=== PATIENT | male | born 1995 | race Caucasian/White ===

== ENCOUNTER 2018-05-15 16:40 | Emergency (ER) | payer OTHER ==
[~2018-05-15] VITALS: Ht 180.3 cm; Wt 90.7 kg
[~2018-05-15 16:40] MED LIST: ACHD5005 PO; CLIN-62 PO; CYCL10TA9 PO; IBP800T PO; MULT-974 PO; SULF-222 PO
[2018-05-15] MEDS ORDERED: TETANUS,DIPTH,PERTUSS P/F (BOOSTRIX) 0.5 ML VIAL IM ONE (16:45)
--- OUTSIDE RECORDS SUMMARY | 2018-05-15 16:45 | XMS REPORT ---
Author Author DOMINIQUE HUSSEIN Organization [facility] Address [address] [place] [address] Care Team Providers Care Coil Maker Name Role Phone DOMINIQUE HUSSEIN Unavailable PROBLEMS Unknown Problems ALLERGIES No Known Allergies ENCOUNTERS Encounter Location Date Diagnosis [facility] [address] [address] Feb, Mouth pain K13.79 [facility] [address] [address] 11 Jul, 2017 Acute seasonal allergic rhinitis, unspecified trigger J30.2 [facility] [id number] [address] Jan, Screen for STD (sexually transmitted disease) Z11.3 and Dysuria R30.0 [facility] [address] [address] Sep, Encounter for immunization Z23 IMMUNIZATIONS No Known Immunizations SOCIAL HISTORY Never Assessed REASON FOR VISIT sinus problems started this weekend now has cough JStrasserRN PLAN OF CARE Activity Details Follow Up prn Reason: VITAL SIGNS Height 70 in 2017-07-25 Weight 198.4 lbs 2017-07-25 Temperature 98.4 degrees Fahrenheit 2017-07-25 Heart Rate 76 bpm 2017-07-25 Respiratory Rate 20 2017-07-25 BMI 28.46 kg/m2 2017-07-25 Blood pressure systolic 120 mmHg 2017-07-25 Blood pressure diastolic 74 mmHg 2017-07-25 MEDICATIONS Medication Instructions Dosage Frequency Start Date End Date Duration Status DayQuil Multi-Symptom 30-325-10 MG/15ML Active NyQuil 60-7.5-30-1000 MG/30ML Active Flonase 50 MCG/ACT Nasally Once a day 1 spray in each nostril 24h Jul, 30 day(s) Active RESULTS No Results PROCEDURES No Known procedures INSTRUCTIONS MEDICATIONS ADMINISTERED No Known Medications
--- NOTE | 2018-05-15 16:47 | ED Upper Extremity ---
General Stated Complaint: L HAND INDEX FINGER LAC Source: patient Exam Limitations: no limitations History of Present Illness Date Seen by Provider: May 15, 2018 Time Seen by Provider: 16:45 Initial Comments to ER per private vehicle with a laceration to the tip of the left pointer finger with an X-Acto knife just prior to arrival. Tetanus is not up-to-date. Onset: just prior to arrival Severity: mild Pain/Injury Location: left 2nd finger Allergies and Home Medications Allergies Coded Allergies: Cefaclor (Verified Allergy, 06/30/13) Home Medications Cyclobenzaprine Hcl 10 Mg Tablet, 1 EACH PO Q8HR PRN PRN for SPASMS Prescribed by: KATE LABOY on 10/31/132139 Hydrocodone Bit/Acetaminophen 1 Each Tablet, 1 EACH PO Q4H PRN for PAIN Prescribed by: KATE LABOY on 10/31/132139 Multivitamin 1 Each Tablet, 2 TAB PO DAILY, (Reported) Patient Home Medication List Home Medication List Reviewed: Yes Constitutional: see HPI EENTM: see HPI Respiratory: no symptoms reported Cardiovascular: no symptoms reported Genitourinary: no symptoms reported Musculoskeletal: no symptoms reported Skin: see HPI Psychiatric/Neurological: No Symptoms Reported Past Tynratb-Dmjxqu-Ixqrca Hx Patient Social History Recent Foreign Travel: No Contact w/Someone Who Travel: No Immunizations Up To Date Tetanus Booster (TDap): Less than 5yrs Family Medical History No Pertinent Family Hx Physical Exam Vital Signs Capillary Refill : General Appearance: WD/WN, no apparent distress HEENT: PERRL/EOMI, normal ENT inspection Neck: non-tender, full range of motion Respiratory: no respiratory distress, no accessory muscle use Shoulder: normal inspection, non-tender Elbow/Forearm: normal inspection, non-tender, Left Wrist: Yes normal inspection, Yes non-tender Hand: Left, laceration (there is a skin avulsion to the very tip of the left pointer finger .. There is active bleeding. There is no exposed bone or nail injury.) Neurologic/Psychiatric: alert, normal mood/affect, oriented x 3 Skin: normal color, warm/dry Progress/Results/Core Measures Results/Orders My Orders Orders - AAMIR CHICAS APRN Dipht,Pertuss(Acell),Tet Adult (Boostrix (05/15/18 16:45) Departure Impression Primary Impression: Skin avulsion Disposition: 01 HOME, SELF-CARE Condition: Stable Departure-Patient Inst. Decision time for Depature: 16:46 Referrals: NO,LOCAL PHYSICIAN (PCP/Family) Primary Care Physician Patient Instructions: SKIN AVULSION Add. Discharge Instructions: 1. Allow the glue to follow off on its own in 3-5 days. Return to ER for any concerns. AAMIR CHICAS APRN May 15, 2018 16:47
[2018-05-15 17:00] VITALS: BP 139/86
== END 2018-05-15 17:10 | disposition home or self-care (01) ==
LOC: EDUNIT# 16:40 → ER 16:41
DX: S61.211A Laceration without foreign body of left index finger without damage to nail, initial encounter (principal); Z23 Encounter for immunization; Z88.1 Allergy status to other antibiotic agents; W26.0XXA Contact with knife, initial encounter
CPT/HCPCS: 90471; 90715; 99284

== ENCOUNTER 2022-07-05 06:35 | Emergency (ER) | payer BC ==
[~2022-07-05] VITALS: Ht 180.3 cm; Wt 90.7 kg
--- NOTE | 2022-07-05 08:25 | ED GI ---
General Chief Complaint: Abdominal/GI Problems Stated Complaint: PAINFUL HEMORRHOIDS Nursing Triage Note: PT TO RM 5 WITH CC OF ABD PAIN AND CONSTIPATION. PT REPORTS HEMORRHOIDS FOR A COUPLE WEEKS AND LAST BM 07/03/22. PT STATES PAIN 9/10 IN LOWER ABD. PT DENIES N/V. PT REPORTS HAS BEEN TAKING OVER THE COUNTER LAXATIVES AND HAS BEEN TREATING HEMORRHOIDS AT HOME. PT A&OX4. Source of Information: Patient Exam Limitations: No Limitations History of Present Illness Date Seen by Provider: Jul 05, 2022 Time Seen by Provider: 07:55 Initial Comments Patient presents ER by private conveyance with his mother chief complaint that he is having a tremendous amount of rectal pain. This is been going on for least a week. He feels that he had a protruding hemorrhoid that he put some Preparation H on and it has gone back and since then. He had a hard time having a bowel movement for the past 2 to 3 days. Is been using Dulcolax and stool softeners. He has not had a bowel movement least 2 days. He did have a little bit of bright red blood on wiping a few days ago. He is never had any surgeries, colonoscopies. He is not had any anal/rectal penetration and denies having put anything in his rectum. He does not have any history of immunocompromise, HIV, chemotherapy, radiation proctitis etc. He has not used sitz baths. He is not having diarrhea nausea vomiting fevers or chills. Allergies and Home Medications Allergies Coded Allergies: Cefaclor (Verified Allergy, 06/30/13) Patient Home Medication List Home Medication List Reviewed: Yes Review of Systems Review of Systems Constitutional: No chills, No diaphoresis EENTM: No Blurred Vision, No Double Vision Respiratory: Denies Cough, Denies Orthopnea Cardiovascular: Denies Chest Pain, Denies Edema, Denies Lightheadedness Gastrointestinal: Denies Constipated, Denies Diarrhea, Denies Nausea Genitourinary: Denies Burning, Denies Drainage Musculoskeletal: No back pain, No joint pain Skin: No pruritus, No rash All Other Systems Reviewed Negative Unless Noted: Yes Past Cndvlzs-Lnipcl-Dqimcm Hx Patient Social History Tobacco Use?: No Substance use?: Yes Substance type: Marijuana Substance frequency: Daily Alcohol Use?: No Pt feels they are or have been: No Immunizations Up To Date Tetanus Booster (TDap): More than 5yrs Past Medical History Surgeries: No Respiratory: No Cardiac: No Neurological: No Gastrointestinal: No Musculoskeletal: No Endocrine: No Cancer: No Psychosocial: No Integumentary: No Blood Disorders: No Family Medical History No Pertinent Family Hx Physical Exam Vital Signs Vital Signs - First Documented 07/05/22 07:04 Temp 36.5 Pulse 72 Resp 16 B/P (MAP) 116/71 (86) Pulse Ox 98 O2 Delivery Room Air Capillary Refill : Less Than 3 Seconds Height/Weight/BMI Height: 5'11.00" Weight: 200lbs. oz. 90.202205vd; 27.00 BMI Method:Stated General Appearance: WD/WN, no apparent distress HEENT: PERRL/EOMI, pharynx normal Neck: full range of motion, supple, normal inspection Respiratory: lungs clear, no respiratory distress, no accessory muscle use Cardiovascular: normal peripheral pulses, regular rate, rhythm Gastrointestinal: normal bowel sounds, non tender, soft Extremities: normal inspection, normal capillary refill Pelvic: other (External anatomy unremarkable. No fissure, fistula, erythema, swelling or presenting hemorrhoid. No evidence of a perineal abscess or inflammation. No induration.) Neurologic/Psychiatric: alert, normal mood/affect (Pained expression, pacing), oriented x 3 Skin: normal color, warm/dry Progress/Results/Core Measures Results/Orders Vital Signs/I&O 07/05/22 07:04 Temp 36.5 Pulse 72 Resp 16 B/P (MAP) 116/71 (86) Pulse Ox 98 O2 Delivery Room Air Blood Pressure Mean: 86 Progress Progress Note : Time: 08:[address] Rosa and he will work him into his afternoon clinic. We will give him a prescription for Proctofoam, MiraLAX, hydrocodone and and recommendations for sitz bath's. Questions were answered and gone over a plan to follow-up with the surgeon and the patient is happy with this plan. Departure Impression Primary Impression: Internal thrombosed hemorrhoids Disposition: 01 HOME, SELF-CARE Condition: Stable Departure-Patient Inst. Decision time for Depature: 08:24 Referrals: TAYE ROSA,LOCAL PHYSICIAN (PCP) Primary Care Physician Patient Instructions: Hemorrhoidectomy (DC), Hemorrhoids Add. Discharge Instructions: MiraLAX 1 capful mixed in 6 to 8 ounces of fluid 1-3 times a day to stay regular. Hydrocodone 1 tablet every 6 hours as needed to control severe pain. Ibuprofen 800 mg every 8 hours needed for pain. Tylenol 650 mg every 6 hours needed for pain. Proctofoam applied to the rectum every 4 hours as needed for pain. Follow-up with Dr. Rosa by presenting to his clinic at 1300, 1 PM today and he will work you in. Sitz bath's as often as necessary to relax pain and help he had a bowel movement. All discharge instructions reviewed with patient and/or family. Voiced understanding. Scripts Hydrocodone/Acetaminophen (Hydrocodone-Acetamin 5-325 mg) 5 Mg-325 Mg Tablet 1 TAB PO Q6H PRN for PAIN-MODERATE (5-7), #12 TAB 0 Refills Prov: DOE AHUMADA 07/05/22 Polyethylene Glycol 3350 (Miralax) 17 Gram/Dose Powder 17 GM PO TID PRN for CONSTIPATION-1ST LINE, #1 EA 0 Refills Prov: DOE AHUMADA 07/05/22 Hydrocortisone/Pramoxine (Proctofoam-Hc 1%-1% Foam) 1 %-1 % Foam 1 GM RC Q4H PRN for PAIN-BREAKTHROUGH for 7 Days, #10 GM 0 Refills Prov: DOE AHUMADA 07/05/22 Work/School Note: Work Release Form Date Seen in the Emergency Department: Jul 05, 2022 Return to Work: Jul 07, 2022 Restrictions: No Restrictions Copy Copies To 1: TAYE ROSA DO DOE AHUMADA Jul 05, 2022 08:25
[2022-07-05] MEDS ORDERED: ACHD5005 PO (08:27)
[2022-07-05] MEDS ORDERED: HCPR10FM RC (08:27)
[2022-07-05] MEDS ORDERED: POLY119P5 PO (08:27)
[2022-07-05] MEDS ORDERED: HYDROcodone/APAP 5 MG/325 MG (LORTAB) TAB PO ONE (08:30)
[2022-07-05 08:35] VITALS: BP 131/91
== END 2022-07-05 08:35 | disposition home or self-care (01) ==
LOC: EDUNIT# 06:35 → ER 06:40
DX: K64.8 Other hemorrhoids (principal)
CPT/HCPCS: 99283

== ENCOUNTER 2022-08-25 06:27 | Outpatient (CLI) | payer BC ==
[~2022-08-25] VITALS: Ht 180.3 cm; Wt 90.7 kg
[~2022-08-25 06:27] MED LIST changes: +HCPR10FM RC; +POLY119P5 PO
== END 2022-08-25 09:18 | disposition home or self-care (01) ==
LOC: PREOP 06:27
PROVIDERS: ATTEND Surgery
DX: Z01.818 Encounter for other preprocedural examination (principal)

== ENCOUNTER 2022-09-03 11:25 | Day surgery (SDC) | payer BC ==
[~2022-09-03] VITALS: Ht 180.3 cm; Wt 90.7 kg
[2022-09-03] MEDS ORDERED: LACTATED RINGERS 1,000 ML IV STA (11:32)
[2022-09-03 11:45] VITALS: BP 129/76
[2022-09-03] MEDS ORDERED: MIDAZOLAM 2 MG/2 ML (VERSED) VIAL ONE (12:02)
--- NOTE | 2022-09-03 12:21 | Progress Note-Pre Operative ---
Pre-Operative Progress Note Date of Available H&P: Aug 09, 2022 Date H&P Reviewed: Sep 03, 2022 Time H&P Reviewed: 12:21 History & Physical: H&P Reviewed, Patient Examed, No changes noted Pre-Operative Diagnosis: change in bowel habits TAYE CHI DO Sep 03, 2022 12:21
[2022-09-03] MEDS ORDERED: PROPOFOL INJECTION 50 ML IV ONE ×2 (12:59→13:11)
--- NOTE | 2022-09-03 13:22 | Progress Note-Post Operative ---
Post-Operative Progess Note Surgeon (s)/Accounting Support Specialist (s) Surgeon TAYE CHI DO Accounting Support Specialist: N/A Pre-Operative Diagnosis change in bowel habits Post-Operative Diagnosis Diverticulosis Procedure & Operative Findings Date of Procedure 09/03/22 Procedure Performed/Findings Colonoscopy - diverticulosis Anesthesia Type per international organizer Estimated Blood Loss Estimated blood loss (mL): None Specimens/Packing Specimens Removed None TAYE CHI DO Sep 03, 2022 13:22
--- NOTE | 2022-09-03 13:23 | Discharge Inst-Simple/Standard ---
Discharge Inst-Standard Patient Instructions/Follow Up Plan of Care/Instructions/FU: follow up with Dr. Rosa in 2 weeks Activity as Tolerated: Yes Discharge Diet: Regular Diet (high fiber diet) TAYE ROSA DO Sep 03, 2022 13:23
[2022-09-03 13:27] VITALS: BP 113/62
[2022-09-03 13:32] VITALS: BP 117/63
[2022-09-03 13:35] VITALS: BP 117/63
--- NOTE | 2022-09-03 14:05 | Anesthesia-General Post-Op ---
MAC Patient Condition Mental Status/LOC: Same as Preop Cardiovascular: Satisfactory Nausea/Vomiting: Absent Respiratory: Satisfactory Pain: Controlled Complications: Absent Post Op Complications Complications None Follow Up Care/Instructions Patient Instructions None needed. Anesthesiology Discharge Order Discharge Order Patient is doing well, no complaints, stable vital signs, no apparent adverse anesthesia problems. No complications reported per nursing. KALPESH HINES CRNA Sep 03, 2022 14:05
[2022-09-03 14:10] VITALS: BP 117/63
--- NOTE | 2022-09-04 00:23 | OPERATIVE REPORT ---
DATE OF SERVICE: 09/03/2022 PREOPERATIVE DIAGNOSIS: Change in bowel habits. POSTOPERATIVE DIAGNOSIS: Diverticulosis. PROCEDURE: Colonoscopy. SURGEON: Taye Rosa DO ANESTHESIA: Per PROCESSING OPERATOR. ESTIMATED BLOOD LOSS: None. COMPLICATIONS: None. INDICATIONS: The patient is a 27-year-old male with change in bowel habits. He understands risks and benefits of procedure and wishes to proceed. Consent was signed in the chart. DESCRIPTION OF PROCEDURE: The patient was taken to endoscopy suite, placed in left lateral recumbent position. Timeout was performed. Digital rectal exam was performed. No palpable polyps, masses or ulcerations. Scope was inserted in the rectum and advanced all the way to cecum with minimal difficulty. Prep was adequate. Scope was slowly retracted back. No polyps, masses or ulcerations in the cecum, ascending, transverse, descending and sigmoid colon. Once in the rectum, scope was retroflexed noting no other pathology. Scope was returned to its normal position, slowly withdrawn until completely removed. The patient tolerated procedure well without any complications, taken to recovery room in stable condition. RECOMMENDATIONS: The patient was recommended a high fiber diet due to diverticulosis. Otherwise, he will need repeat colonoscopy per screening guidelines starting at age 45. Any issues before that will be seen at that time. Job ID: [id number] DocumentID: [id number] Dictated Date: 09/03/2022 14:03:29 Track Liner Operator Date: 09/04/2022 00:22:40 Dictated By: TAYE ROSA DO
== END 2022-09-03 14:10 | disposition home or self-care (01) ==
LOC: ENDO 11:25
PROVIDERS: ATTEND Surgery
DX: K57.30 Diverticulosis of large intestine without perforation or abscess without bleeding (principal)

== ENCOUNTER 2023-04-13 17:55 | Emergency (ER) | payer BC ==
[~2023-04-13] VITALS: Ht 170 cm; Wt 95.0 kg
[2023-04-13 18:03] VITALS: BP 137/85
--- NOTE | 2023-04-13 18:10 | ED GU-Male ---
General Chief Complaint: - Reproductive Stated Complaint: TESTICULAR PAIN Nursing Triage Note: ARRIVED VIA AMB TO ROOM 08 WITH COMPLAINTS OF LEFT SIDED TESTICULAR PAIN THAT STARTED YESTERDAY. Source: patient Exam Limitations: no limitations History of Present Illness Date Seen by Provider: April 13, 2023 Time Seen by Provider: 17:58 Initial Comments 27-year-old male with no pertinent past medical history coming in due to left testicle swelling and pain. Started yesterday morning, pain has been slow in onset, getting worse over the past day. He had ibuprofen recently today which has helped a little bit with the pain. Has never had pain like this before. The pain does not radiate from anywhere. Denies any fever, nausea, vomiting, diarrhea, dysuria, penile discharge, hematuria, abdominal pain, rash, or any oth er concerns. He does believe he has had unprotected intercourse in the past several months, but none very recent. Allergies and Home Medications Allergies Coded Allergies: cefaclor (Verified Allergy, Unknown, 07/05/22) Patient Home Medication List Home Medication List Reviewed: Yes Doxycycline Hyclate (Doxycycline Hyclate) 100 Mg Tablet, 100 MG PO BID Prescribed by: GIACOMO HOLDER on 04/13/23 1900 Review of Systems Review of Systems Constitutional: No fever EENTM: no symptoms reported Respiratory: no symptoms reported Cardiovascular: no symptoms reported Gastrointestinal: no symptoms reported Genitourinary: see HPI Musculoskeletal: no symptoms reported Skin: no symptoms reported Psychiatric/Neurological: No Symptoms Reported Endocrine: No Symptoms Reported Past Akkecle-Dsfads-Hyeivc Hx Patient Social History Tobacco Use?: No Substance use?: Yes Substance type: Marijuana Alcohol Use?: No Immunizations Up To Date Tetanus Booster (TDap): More than 5yrs First/Initial COVID19 Vaccinat: YES Second COVID19 Vaccination [place]: N/A Third COVID19 Vaccination Date: N/A Seasonal Allergies Seasonal Allergies: Yes Past Medical History Surgeries: Yes (MRSA EXTRACTION FROM LT ELBOW) Orthopedic Respiratory: No Cardiac: No Neurological: No Genitourinary: No Gastrointestinal: No Hemorrhoids Musculoskeletal: No Endocrine: No HEENT: No Cancer: No Psychosocial: No Integumentary: Yes Psoriasis Blood Disorders: No Family Medical History No Pertinent Family Hx Physical Exam Vital Signs Vital Signs - First Documented 04/13/23 18:03 Temp 37.4 Pulse 94 Resp 16 B/P (MAP) 137/85 (102) Pulse Ox 99 O2 Delivery Room Air Capillary Refill : Less Than 3 Seconds Height, Weight, BMI Height: 5'11.00" Weight: 200lbs. oz. 90.566764ki; 32.00 BMI Method:Stated General Appearance: WD/WN, no apparent distress HEENT: PERRL/EOMI, normal ENT inspection, pharynx normal Neck: non-tender, full range of motion, supple, normal inspection Cardiovascular: regular rate, rhythm, no edema, no murmur Respiratory: chest non-tender, lungs clear, normal breath sounds, no respiratory distress, no accessory muscle use Gastrointestinal: normal bowel sounds, non tender, soft; No distended, No guarding, No rebound Male: testicular tenderness, other (Testicular swelling on the left with tenderness mostly along the posterior aspect of the testicle, pain improves with elevation of the testicle, has a normal cremasteric reflex) Back: normal inspection, no CVA tenderness Extremities: normal range of motion, non-tender, normal inspection, no pedal edema, no calf tenderness Neurologic/Psychiatric: alert Skin: normal color, warm/dry Progress/Results/Core Measures Suspected Sepsis SIRS Temperature: Pulse: 94 Respiratory Rate: 16 Blood Pressure 137 /85 Mean: 102 Results/Orders Lab Results Laboratory Tests Test 04/13/23 18:15 Range/Units Urine Color YELLOW Urine Clarity CLEAR Urine pH 6.0 5-9 Urine Specific Timbo >=1.030 1.016-1.022 Urine Protein NEGATIVE NEGATIVE Urine Glucose (UA) NEGATIVE NEGATIVE Urine Ketones 1+ H NEGATIVE Urine Nitrite NEGATIVE NEGATIVE Urine Bilirubin NEGATIVE NEGATIVE Urine Urobilinogen 0.2 < = 1.0 MG/DL Urine Leukocyte Esterase NEGATIVE NEGATIVE Urine RBC (Auto) NEGATIVE NEGATIVE Urine RBC NONE /HPF Urine WBC 0-2 /HPF Urine Squamous Epithelial Cells NONE /HPF Urine Crystals NONE /LPF Urine Bacteria TRACE /HPF Urine Casts NONE /LPF Urine Mucus SMALL H /LPF Urine Culture Indicated NO My Orders Orders - GIACOMO HOLDER MD Scrotum (Testicle) [id number] (04/13/23 18:07) Ua Culture If Indicated (04/13/23 18:07) Hydrocodone/Apap 5/325 Tablet (Lortab 5 (04/13/23 18:15) Neis Ryan Dna Urine Test (04/13/23 18:07) Chlamydia Trachomatis Urine (04/13/23 18:07) Ceftriaxone Inj (Rocephin Inj) (04/13/23 19:00) Lidocaine 1% Inj 20 Ml (Xylocaine 1% Inj (04/13/23 19:00) Doxycycline Hyclate Tablet (Vibramycin T (04/13/23 18:57) Medications Given in ED Current Medications Medications Dose Ordered Sig/Clair Route Start Time Stop Time Status Last Admin Dose Admin Acetaminophen/ Hydrocodone Bitart 1 ea ONCE ONCE PO 04/13/23 18:15 04/13/23 18:16 DC 04/13/23 18:14 1 EA Vital Signs/I&O 04/13/23 18:03 Temp 37.4 Pulse 94 Resp 16 B/P (MAP) 137/85 (102) Pulse Ox 99 O2 Delivery Room Air Capillary Refill : Less Than 3 Seconds Blood Pressure Mean: 102 Progress Note : Progress Note 27-year-old male with above history coming in due to testicle pain. ABCs were intact and vitals were stable on presentation. Physical exam with testicle swelling and pain on the left, improved with elevation of the testicle, has a normal cremasteric reflex, most tender over the epididymis. Urinalysis, GC and chlamydia, and ultrasound ordered. Ultrasound concerning for epididymitis. Urinalysis here negative for infection. The patient was given IM ceftriaxone as well as doxycycline. Given hydrocodone for pain here. He will be sent a prescription for antibiotics. I believe he is otherwise stable for discharge with outpatient follow-up. He was sent home with strict return precautions Diagnostic Imaging Diagonstic Imaging: Ultrasound (scrotum) Comments NAME: JOSE FRANCISCO [facility] REC#: [id number] PT STATUS: REG ER : 1995 PHYSICIAN: GIACOMO HOLDER MD ADMIT DATE: 04/13/23/ER Draft Date of Exam:04/13/23 US SCROTUM (Testicle) [id number] PROCEDURE: US Scrotum w/ Duplex TECHNIQUE: Multiple realtime hong images were obtained of the scrotum in various projections bilaterally. Color Doppler images were also obtained. INDICATION: Left-sided testicular pain. COMPARISON: None. FINDINGS: The testicles are normal in size, shape and echogenicity. The right testis measures 4.7 x 2.6 x 3.2 cm. The left testis measures 4.9 x 2.8 x 3.4 cm. There is asymmetric increased color Doppler flow within the left testicle. No focal testicular mass is seen on either side. The left epididymis demonstrates increased color Doppler flow with an enlarged and heterogeneous appearance. The right epididymis is unremarkable. A small left-sided hydrocele is noted. Left-sided varicocele is seen. IMPRESSION: 1. Findings are most suggestive of left-sided orchitis/epididymitis. Reactive small hydrocele is seen on the left. No evidence of abscess. 2. Left-sided varicocele. Dictated on workstation # [id number] Departure Impression Primary Impression: Acute epididymitis Disposition: HOME, SELF-CARE Condition: Stable Departure-Patient Inst. Decision time for Depature: 19:00 Referrals: OMER SOTO MD (PCP/Family) Primary Care Physician Patient Instructions: Epididymitis Add. Discharge Instructions: This is most likely due to infection as you have normal blood flow on your ultrasound. You will be on antibiotics for the next 10 days. Use protection if having intercourse until finished with antibiotics. Take ibuprofen 6 or milligrams every 6 hours as needed for pain and/or Tylenol 1000 mg every 6 hours Scripts Doxycycline Hyclate (Doxycycline Hyclate) 100 Mg Tablet 100 MG PO BID for 10 Days, #20 TAB 0 Refills Prov: GIACOMO HOLDER MD 04/13/23 Work/School Note: Work Release Form Date Seen in the Emergency Department: April 13, 2023 Return to Work: Apr 15, 2023 Restrictions: No Restrictions GIACOMO HOLDER MD April 13, 2023 18:10
[2023-04-13] MEDS ORDERED: HYDROcodone/APAP 5 MG/325 MG (LORTAB) TAB PO ONE (18:15)
[2023-04-13 18:21] LABS: BILIRUBIN,URINE NEGATIVE (NEGATIVE); CLARITY,URINE CLEAR; COLOR,URINE YELLOW; GLUCOSE, URINE (UA) NEGATIVE (NEGATIVE); KETONES,URINE 1+ (NEGATIVE); LEUKOCYTE ESTERASE ,URINE NEGATIVE (NEGATIVE); NITRITE,URINE NEGATIVE (NEGATIVE); PROTEIN,URINE NEGATIVE (NEGATIVE)
[2023-04-13 18:31] LABS: BACTERIA,URINE TRACE /HPF; WBC,URINE 0-2 /HPF
--- NOTE | 2023-04-13 18:56 | Diagnostic Imaging Report ---
PROCEDURE: US Scrotum w/ Duplex TECHNIQUE: Multiple realtime hong images were obtained of the scrotum in various projections bilaterally. Color Doppler images were also obtained. INDICATION: Left-sided testicular pain. COMPARISON: None. FINDINGS: The testicles are normal in size, shape and echogenicity. The right testis measures 4.7 x 2.6 x 3.2 cm. The left testis measures 4.9 x 2.8 x 3.4 cm. There is asymmetric increased color Doppler flow within the left testicle. No focal testicular mass is seen on either side. The left epididymis demonstrates increased color Doppler flow with an enlarged and heterogeneous appearance. The right epididymis is unremarkable. A small left-sided hydrocele is noted. Left-sided varicocele is seen. IMPRESSION: 1. Findings are most suggestive of left-sided orchitis/epididymitis. Reactive small hydrocele is seen on the left. No evidence of abscess. 2. Left-sided varicocele. Dictated by: Dictated on workstation # [id number]
[2023-04-13] MEDS ORDERED: DOXYCYCLINE 100 MG (VIBRAMYCIN) TABLET PO STA (18:57)
[2023-04-13] MEDS ORDERED: DOXY100T2 PO (19:00)
[2023-04-13] MEDS ORDERED: cefTRIAXone 500 MG/5 ML ML IM ONE (19:00)
[2023-04-13] MEDS ORDERED: LIDOCAINE 1% INJ 20 ML VIAL INJ ONE (19:00)
== END 2023-04-13 19:07 | disposition home or self-care (01) ==
LOC: EDUNIT# 17:55 → ER 17:58
DX: N45.1 Epididymitis (principal); Z88.0 Allergy status to penicillin
CPT/HCPCS: 36415; 76870; 81000; 87491; 87591